=== PATIENT | female | born 1930 | race Caucasian/White ===

== ENCOUNTER → 2017-01-01 | Outpatient (CLI) | payer OTHER ==
[~2017-01-01] MED LIST: ADOXA100 MG PO; AUGMENTIN 875 M1 TAB PO; BACTRIM 400 MG-1 TAB PO; BACTRIM DS 8001 TA1 PO; CIPRO250 MG PO; CIPRO500 MG PO; CLARITIN10 MG PO; FLONASE 0.05% 121 EA NAS; HYDROCODONE BIT1 T11 PO; K-LOR20 MEQ; KCL; LASIX; LASIX40 MG; MOTRIN800 MG PO; MUCINEX600 MG PO; PRILOSEC20 MG PO; PRILOSEC40 MG PO; PROMETHAZINE12.5 M1 PO; SINEMET 25-1001 TA1 PO; SMZ-TMP 400 MG-1 TAB PO; SYNTHROID; SYNTHROID,LEVO25 MCG PO; SYNTHROID0.025 MG; TYLENOL500 MG PO; TYLENOL650 M1 PO; ZANTAC150 MG PO
[2017-01-01 17:04] LABS: ALBUMIN 3.6 gm/dl (3.1-4.5); CREATININE 1.36 mg/dL (0.55-1.02); POTASSIUM 4.2 mmol/L (3.5-5.1); TOTAL PROTEIN 7.7 gm/dL (6.4-8.2)
[2017-01-01 17:22] LABS: BASO % 0.5 % (0.0-1.0); EOS # 0.1 10*3/uL (0.0-0.4); EOS % 1.2 % (1.0-4.0); HEMATOCRIT 34.4 % (37.0-47.0); HEMOGLOBIN 10.8 g/dl (12.0-16.0); LYMPH # 1.3 10*3/uL (1.3-4.4); LYMPH % 20.9 % (27.0-41.0); MEAN CELL VOLUME 99.7 fl (81.0-99.0); MEAN CORPUSCULAR HGB 31.3 pg (27.0-31.0); MEAN CORPUSCULAR HGB CONC 31.4 g/dl (33.0-37.0); MEAN PLATELET VOLUME 10.8 fl (9.6-12.3); MONO # 0.5 10*3/uL (0.1-1.0); MONO % 8.1 % (3.0-9.0); NEUT # 4.2 10*3/uL (2.3-7.9); NEUT % 68.8 % (47.0-73.0); PLATELET COUNT AUTOMATED 196 10*3/uL (130-400); RED BLOOD COUNT 3.45 10*6/uL (4.10-5.10); RED CELL DISTRI WIDTH 13.3 % (0-14.5)
== END | disposition home or self-care (01) ==
LOC: LAB 16:08
PROVIDERS: Internal Medicine
DX: E03.9 Hypothyroidism, unspecified (principal); E55.9 Vitamin D deficiency, unspecified; N18.3 Chronic kidney disease, stage 3 (moderate)

== ENCOUNTER 2017-05-24 10:18 | Inpatient (IN) | payer OTHER ==
[~2017-05-24] VITALS: Ht 165.1 cm; Wt 47.2 kg
--- NOTE | ~2017-05-24 | PROC NOTE ---
[place], [place] PROCEDURE NOTE NAME: CLARITZA PATHAK UNIT #: [id number] ROOM: [facility] DOCTOR: SELAM STEVENS MD,VEENA BIRTHDATE: [birth year] DOS: 05/27/2017 PREOPERATIVE DIAGNOSIS: Bilateral diffuse interstitial pulmonary infiltration. POSTOPERATIVE DIAGNOSES: Evidence of suspected acute bacterial pneumonia and also interstitial lung disease. COMPLICATIONS: None. BLOOD LOSS: None. PROCEDURE DESCRIPTION: Informed consent obtained from the patient's family members. The patient is currently sedated on the intravenous Diprivan. The mechanical ventilation continued with 100% oxygen supplementation during the procedure. The bronchoscopy done in the negative pressure suite for this patient in the ICU. The video fiberoptic bronchoscope advanced through the endotracheal tube. Lower part of trachea noted a moderate amount of bilious secretion present in endobronchial tree bilaterally suctioned out with normal saline wash. Intake and output and sent for cultures. BAL specimen was obtained in the right middle lobe as well as right lower lobe for this patient and sent for cell differential including the routine culture for this patient as well as for the pneumocystis stain. Procedure well tolerated by the patient without any complications. Post-findings will be discussed with the patient's family members and patient later on. No major change in treatment at this time will be needed. VEENA DOSS MD CM:PROCNOTE:PROCEDURE NOTE [id number] VEENA STEVENS MD
--- NOTE | ~2017-05-24 | PR ---
[place], [place] PROGRESS NOTE NAME: CLARITZA PATHAK UNIT #: [id number] ROOM: [facility] DOCTOR: BANDAR KENNEDY DO BIRTHDATE: [birth year] DOS: I was called to the ICU for respiratory distress. The patient has bilateral pneumonia. She was on a BiPAP and was satting in the mid 60s her for oxygen status. ____ Dr. Carreno ____ cleared with the patient's family. They did want the patient intubated. The patient was sedated with 20 of etomidate. She was manually bag masked to bring her sats below 90s, 100 mg of succinylcholine was used. A 7.5 ET tube was advanced through her cords with good visualizations. Good breath sounds bilaterally. No breath sounds in the epigastrium. Good tube fogging. Good color change on the CO2 detector. Chest x-ray is pending. BANDAR KENNEDY DO CM:PNTRANS [id number] BANDAR KENNEDY DO 05/25/172058 interface
--- NOTE | ~2017-05-24 | CON ---
[place], [place] REPORT OF CONSULTATION NAME: CLARITZA PATHAK UNIT #: [id number] ROOM: [facility] DOCTOR: SELAM STEVENS MD,VEENA BIRTHDATE: [birth year] DOS: 05/26/2017 PULMONARY CRITICAL CARE CONSULTATION CONSULTATION REQUESTED BY: Kaiden Angel DO REASON FOR CONSULTATION: To assess the patient's current acute respiratory failure. HISTORY OF PRESENT ILLNESS: This is an 86-year-old white female, unable to give me any history as the patient is intubated, noted on mechanical ventilation in the hospital since 05/24/2017 under the hospitalist care. The history contained document is ____ review of the medical record for current hospitalization by the other physician note as well. HISTORY OF PRESENT ILLNESS: The patient is an 86-year-old female who was brought to the Emergency Room because the patient was noted with progressive general weakness and fatigue. The patient was also reported symptoms of urinary tract infection, which has been treated since 05/19/2017 with ciprofloxacin. The patient was noted with symptoms of cough with yellow sputum expectoration. The daughter stated the patient was also noted symptoms, sinus congestion as well and ____ was given for that. The patient admitted to the hospital noted progressive deterioration of the oxygenation during the hospitalization. She requires progressive increase in oxygen requirement. The initial code status was noted with possibility of comfort care for this patient, but later on as Dr. Lian Angel discussed with the patient's family member, she was intubated and started on mechanical ventilation. The patient's code status was described to be full code. The patient was also noted this finding of mild hypertension with fever as well. The patient is currently intubated and started on mechanical ventilation last evening. He remains on mechanical ventilation, initially 100% oxygen supplementation. Gradual reduction of the oxygen was noted up to 50% this morning. The patient also sedated with the use of the combination to prevent intravenous Versed. She also received some fluid resuscitation for the patient post-intubation as well for the medical management of hypotension. She has not been reported any findings of hemoptysis. Some worsening of the kidney function was also reported. REVIEW OF SYSTEMS: Could not be completed since the patient is intubated, noted on the mechanical ventilation. PAST MEDICAL HISTORY: Reported in the medical records is a history of parkinsonism and gastric outlet obstruction. The patient also had a history of hypothyroidism. PAST SURGICAL HISTORY: Documented for hysterectomy. SOCIAL HISTORY: The patient was documented as no tobacco use, alcohol use or any illicit drugs. 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 History about the mom was unknown for this patient. One of the brother with history of stroke. Two other brothers were noted to have history of stroke. HOME MEDICATIONS: Noted. 1. Sinemet 25/100 one q.i.d. 2. Ciprofloxacin 500 mg b.i.d. 3. Colace 100 mg p.o. daily p.r.n. constipation. 4. Ibuprofen 800 mg p.o. t.i.d. 5. Synthroid 50 mcg p.o. daily. DRUG ALLERGIES: Reported as allergy to Macrobid. PHYSICAL EXAMINATION: GENERAL: This is an 86-year-old female who has been currently noted intubated on mechanical ventilation at this time. Height of the patient recorded 5 feet 5 inches, weight of 104. The BMI 17.3. VITAL SIGNS: For the patient, which has been recorded patient showed the temperature noted as normal, respiratory rate range between 35-28, heart rate 84-100, blood pressure 117/51 to 105/45. The intake for the patient was noted as 2157 and output 575 mL. Pulse oxygen saturation of the patient 50% with 97% saturation. The patient's oxygen on room air on admission noted at 93%. HEENT: Examination shows head was atraumatic. Eyes were nonicterus. NECK: Supple. The patient is currently intubated. CARDIOVASCULAR SYSTEM: S1, S2 audible. LUNGS: The patient noted moderate reduction in breath sounds in the lungs bilaterally. There were no crackles heard. ABDOMEN: Soft, nontender. EXTREMITIES: The patient was noted without any visible edema, clubbing, or cyanosis. MUSCULOSKELETAL: There were no obvious deformities were noted. GENITOURINARY: Cannot be assessed. The patient is currently intubated. History of past parkinsonism reported. LABORATORY DATA: Reviewed. Urine culture on the was noted as heavy growth of E. coli. The patient noted ____ multiple antibiotics with resistant to the fluoroquinolones. The lactic acid was 2.8 noted on admission and later 1.2 on the same day on . PT/PTT on 05/24/2017 was normal. The CBC of the patient of 05/24/2017 on admission, WBC count 11.1, hemoglobin 10.2, hematocrit 29.8, and platelet count 189,000. CMP of the patient of , BUN 38, creatinine 2.14, and glucose 133. The albumin of 3.0, AST 48, minimally elevated. Influenza A and B, nasal washing antigens were negative. CT scan of the head for this patient that was done on 05/24/2017 was noted to have no acute intracranial abnormalities reported. CMP of the patient that was done yesterday, BUN of 39, creatinine 2.02, glucose 117, carbon dioxide of 20. PT/PTT repeated yesterday still noted normal. The CBC of the patient of 05/25/2017, WBC count 14.5, hemoglobin 9.9, hematocrit 30.9, and platelet count 213,000. The blood culture for patient on of this month so far reported no bacterial growth. Final results were pending. CMP this morning, BUN 42, [place], [place] REPORT OF CONSULTATION NAME: CLARITZA PATHAK UNIT #: [id number] ROOM: [facility] DOCTOR: SELAM STEVENS MD,[facility] BIRTHDATE: [birth year] creatinine 1.95, glucose 130, CO2 of 19. Albumin 2.4. CBC of the patient on 05/26/2017, WBC count 14.7, hemoglobin 8.8, hematocrit 26.0, and platelet count was normal. The chest x-ray of the patient that was done on 05/24/2017 noted with patchy infiltration in the lungs. The patient's pulmonary venous congestion marking without any pleural fluid. The chest x-ray which was done for the patient at 5:56 a.m. on 05/25/2017 noted progressive increased infiltration noted diffusely in the lungs bilaterally with finding of a diffuse pulmonary infiltration, possibility of pulmonary edema will be considered or worsening of the pneumonia. The chest x-ray post-intubation endotracheal tube noted about 3.5 cm above the kinza level diffuse pulmonary infiltration. A chest x-ray that I ordered for the patient this morning shows partial reduction of previous pulmonary infiltration. The arterial blood gas this morning 70% oxygen, pH of 7.37, pCO2 of 27, pO2 of 172 on assist control, volume control mechanical ventilation. Arterial blood gas yesterday prior to intubation, pH of 7.16, pCO2 of 42, pO2 of 100 and 400% nonrebreather mask. Arterial blood gas prior to that was noted, pH of 7.29, pCO2 of 33.8, pO2 49.9, 100% nonrebreather mask as well. IMPRESSION: 1. The patient who has been currently admitted to the hospital noted with finding of acute respiratory distress syndrome with the patient current bilateral pulmonary infiltration with possible suggestion of pulmonary edema, noncardiogenic causes as well as other interstitial disorders. The patient would be considered including for acute eosinophilic pneumonia or,, hypersensitivity, pneumonitis or allergic drug reaction. 2. The patient with acute kidney injury was also noted with possibility to underlying superimposed chronic kidney disease can be completely excluded. 3. The patient with current over debility status. The patient with suspicion of moderate protein calorie malnutrition as well with her elderly age. 4. The patient with ruling out the congestive heart failure as well with further assessment. 5. Hyperglycemia, which was noted with current use of corticosteroid, which has been given 60 mg daily. There was no further evidence of urinary tract infection. The repeat culture of the urine were noted to be negative. RECOMMENDATION AND MANAGEMENT: The patient has been already initiated ventilator bundle management. DVT prophylaxis will be continued. The patient has been getting intravenous antibiotic cefepime, vancomycin, and Levaquin, which get a coverage for gram-positive and gram-negative organism. Monitor culture results. Complete the doses for this patient of the influenza pneumonia for the patient or infection empirical treatment. Bronchodilators will be administered. Nutrition support has been ordered. The patient with the use of Pulmocare for this patient at this time as well continue sedation. Fibronchoscopy ____ planned to be done in the morning as well. Other additional treatment changes to be done based on further progression of the illness. Monitor and manage the patient with the Nephrology services as well. Cardiology consultation will be strongly recommended for the patient if not done. Assess for possible consideration of left ventricular heart failure as well. Other additional treatment changes to be made for this patient based on progression of the illness and usual care. Also, obtain the endotracheal aspirate for Gram [place], [place] REPORT OF CONSULTATION NAME: CLARITZA PATHAK UNIT #: [id number] ROOM: [facility] DOCTOR: SELAM STEVENS MD,VEENA BIRTHDATE: [birth year] stain and culture as well if it is not done so previously. The total time for pulmonary critical care evaluation and management consultation for this patient is 40 minutes. Thank you for allowing me to participate in the care of this patient. VEENA DOSS MD CM:CONSTR:REPORT OF CONSULTATION 1244 05/26/172031 interface
--- NOTE | ~2017-05-24 | PR ---
[place], [place] PROGRESS NOTE [id number] UNIT #: [id number] ROOM: [facility] DOCTOR: SELAM STEVENS MD,VEENA BIRTHDATE: [birth year] DOS: 05/28/2017 SUBJECTIVE: The patient remains on mechanical ventilator with pressure-control mechanical ventilation. She has a bronchoscopy done as well with BAL specimens obtained. The patient was noted with subcutaneous emphysema this morning initially in the neck and later on the right side of the chest. The patient's oxygen was also noted somewhat decreased. The oxygen saturation was noted about 89-90%. The arterial blood gas was done, which correlates with the current oxygen desaturation. The oxygen supplementation was increased to 50% with oxygen saturation noted as 97% afterwards. She has not been noted with any other changes. She was getting minimal sedation, does partially open her eyes with vocal commands. The feeding was continued, which has been well tolerated. OBJECTIVE: VITAL SIGNS: For the patient, which has been recorded showed the temperature noted as 99.2 degree Fahrenheit rectal temperature, otherwise normal, respiratory rate 23-30, heart rate of 106-69, blood pressure 110/62-117/39. Pulse oxygen saturation noted 97% on 50% oxygen this morning. The patient was noted as 95% saturation on 40% of oxygen. HEENT: The patient remained orally intubated, orogastric tube is in place. NECK: Supple with subcutaneous emphysema palpable mostly in the right side of the neck. CARDIOVASCULAR: S1, S2 audible. LUNGS: Noted bilaterally equal breath sounds without any wheezing or crackles. ABDOMEN: Soft, nontender. EXTREMITIES: Without any acute edema. VISIBLE SKIN: No lesions or rashes. MUSCULOSKELETAL SYMPTOMS: Without any acute deformities. LABORATORY DATA: The culture of the bronchial washing noted moderate growth of yeast. Urine for legionella antigen and strep antigen report noted as negative. Previous culture endotracheal aspirate noted heavy growth of yeast. Cell differential that was done of right middle and right lower lobe was noted with right lower lobe 70% neutrophils, 17% lymphocytes, 12% macrophages and 1% basophils. The second specimen was noted with 82% neutrophils, the right middle lobe 8% lymphocytes, 1%, eosinophils 7% macrophages. The BAL specimen was highly suggestive of acute infection where the bacterial, viral or other etiologies remains strongly considered. The chest x-ray that was done this morning shows evidence of subcutaneous emphysema, endotracheal tube noted in the above position. Bilateral diffuse infiltration noted in the lungs. The CT scan of the chest that I did order for this patient was reviewed that was completed without contrast has excluded any pneumothorax. Pneumomediastinum was noted as well as subcutaneous emphysema. The patient with bilateral ARDS pattern noted in the lungs. WBC count of 15.6, hemoglobin 9.3, hematocrit 26.6, platelet count 272,000, 94% segmented neutrophils. CMP: BUN 72, creatinine 2.20, glucose 110. Carbon dioxide of 17. Urine culture, no bacterial growth as final results. First arterial blood gas - pH of 7.39, pCO2 of 25, pO2 of 66. Second arterial blood - gas pH of 7.38, pCO2 of 27, pO2 of 85 on 50% oxygen. [place], [place] PROGRESS NOTE NAME: CLARITZA PATHAK UNIT #: [id number] ROOM: [facility] DOCTOR: TRUMAN MCCRAY MDM BIRTHDATE: [birth year] IMPRESSION: 1. The patient has been noted with acute respiratory distress syndrome at the present time, remains persistent secondary to acute infection with viral or bacterial. 2. Subcutaneous emphysema and pneumomediastinum with current mechanical ventilation. The plateau pressure has been already noted less than 30 since the patient is getting mechanical ventilation. The PEEP was kept at the same as 8 cm of water. The arterial blood gas noted with adequate ventilation. The first arterial blood gas that was done shows pO2 of 66 and second arterial blood gases on 50% oxygen noted increased pO2 of 85. 3. Persistent acute kidney injury was noted at the present time without any major worsening. 4. Change in mental status secondary to the metabolic encephalopathy and current acute infection. PLAN OF MANAGEMENT: Continue with current mechanical ventilatory support. The patient would be considered transfer to another facility with Cardiothoracic Surgery back for the management of subcutaneous emphysema. No other intervention otherwise will be needed by the observation. Continue steroids, bronchodilators, and the antibiotics. The reduction of antibiotic spectrum in the next 24 hours based on the final culture results. The pneumocystis stain was also sent on the BAL, which was pending at this time from the lab. Continue nutritional support as tolerated and ventilator bundle management and care plan. Other supportive therapy, plan of management in progress would be continued. Total time in pulmonary critical care, evaluation and management of the patient today was noted 45 minutes. VEENA DOSS MD CM:PNTRANS [id number] VEENA STEVENS MD 05/29/17 0030 interface
--- NOTE | ~2017-05-24 | PR ---
[place], [place] PROGRESS NOTE NAME: CLARITZA PATHAK [facility] #: [id number] UNIT #: [id number] ROOM: [facility] DOCTOR: SELAM STEVENS MD,VEENA BIRTHDATE: [birth year] DOS: 05/27/2017 PULMONARY CRITICAL CARE, EVALUATION AND MANAGEMENT SUBJECTIVE: The patient remains on the mechanical ventilator at the present time. Continued intravenous antibiotics. Also, continued other treatment of the patient, the nutrition support was started. She was also getting Solu-Medrol at 60 mg IV daily. She has not been reported any hemodynamic instability at the present time. She was planned for bronchoscopy done today for the patient, bilateral diffuse pulmonary infiltration. There was no problem with difficulty noted with the feeding, which was started for the patient with gradual increase in the feeding for the patient was continued for the medical management of protein-calorie malnutrition. All the ventilator bundle management remains in progress. OBJECTIVE: VITAL SIGNS: For the patient, which has been recorded showed the temperature noted as normal, respiratory rate 25-27, heart rate 87-83, blood pressure 117/44-109/45. HEENT: The patient remained orally intubated, orogastric tube is in place. NECK: Supple. Head was atraumatic. CARDIOVASCULAR: S1, S2 is audible. LUNGS: The patient was noted without any wheezing or crackles at the present time. Breaths are noted generalized diminished bilaterally. ABDOMEN: Soft, nontender. EXTREMITIES: The patient was noted without any edema. CENTRAL NERVOUS SYSTEM: Currently, the patient is sedated with intravenous Diprivan. SKIN: Visible skin. No lesions or rashes. MUSCULOSKELETAL: Without any acute deformities. LABORATORY DATA: Arterial blood gas this morning, the patient on pressure control mechanical ventilation, pH of 7.34, pCO2 of 23, pO2 161, 40% oxygen. CBC of the patient on 05/27/2017, WBC count 15.1, hemoglobin 8.3, hematocrit 24.4, platelet count 231,000 with 96% segmented neutrophils. Urine culture preliminary showed no bacterial growth. CMP of the patient this morning, BUN 66, creatinine 2.61, glucose 132, sodium 133. Prealbumin only 6. AST 41, ALT less than 6. Albumin 2.1, total protein of 5.8. Sed rate was noted as 80. C-reactive protein was also noted significantly elevated at 16.20. Blood culture from the 05/24/2017 preliminary showed no bacterial growth, final culture results were pending. The culture of endotracheal aspirate for the patient shows heavy growth of yeast. The LDH, which was obtained for the patient today was noted as 604. Chest x-ray of the patient that was done this morning shows stable bilateral pulmonary infiltration with interstitial infiltration. Endotracheal tube was noted for this patient about 4.5 cm above the kinza level. IMPRESSION: 1. The patient has been noted bilateral pulmonary infiltration. Differential diagnosis of acute pneumonia with possibility of noncardiogenic pulmonary edema [place], [place] PROGRESS NOTE NAME: CLARITZA PATHAK UNIT #: [id number] ROOM: [facility] DOCTOR: SELAM STEVENS MD,VEENA BIRTHDATE: [birth year] for this patient or pulmonary edema as well as other interstitial lung disease of the patient remains in progress. 2. Acute influenza infection of the patient was also suspected, treated. 3. Very severe protein-calorie malnutrition. 4. Acute kidney injury for the patient superimposed with possibly chronic kidney disease as well. 5. Change in mental status secondary to the above. PLAN OF MANAGEMENT: The patient will be continued on the bronchodilators, oxygen supplementation and corticosteroids. Titrate the oxygen to maintain a saturation of 92% greater with pressure control mechanical ventilation for the lung volume protective strategy. ____ to be done for the patient carefully because of the elevation of BUN and creatinine. Continue current antibiotic, adjusted the kidney functions. De-escalation of antibiotic after final culture results known. Proceed with the fiberoptic bronchoscopy planned for today including obtaining a BAL specimen of the subsegments. Total time in pulmonary critical care, evaluation and management of the patient was 45 minutes. VEENA DOSS MD CM:PNTRANS [id number] VEENA STEVENS MD 05/28/17 0252 interface
[2017-05-24 10:23] VITALS: BP 136/52
[2017-05-24 11:01] LABS: HEMATOCRIT 29.8 % (37.0-47.0); HEMOGLOBIN 10.2 g/dl (12.0-16.0); MEAN CELL VOLUME 91.4 fl (81.0-99.0); MEAN CORPUSCULAR HGB 31.3 pg (27.0-31.0); MEAN CORPUSCULAR HGB CONC 34.2 g/dl (33.0-37.0); MEAN PLATELET VOLUME 10.4 fl (9.6-12.3); PLATELET COUNT AUTOMATED 189 10*3/uL (130-400); RED BLOOD COUNT 3.26 10*6/uL (4.10-5.10); RED CELL DISTRI WIDTH 12.5 % (0-14.5); WHITE BLOOD COUNT 11.1 10*3/uL (4.8-10.8)
[2017-05-24 11:18] LABS: ACT PARTIAL THROMBO TIME 30.4 SECONDS (20.8-31.5); INTERNATIONAL NORM RATIO 1.1 (2.0-3.5)
[2017-05-24 11:21] LABS: PLATELET SUFFICIENCY NORMAL (NORMAL); TOTAL CELLS COUNTED 100 #CELLS
[2017-05-24 11:24] LABS: CREATININE 2.14 mg/dL (0.55-1.02); POTASSIUM 4.2 mmol/L (3.5-5.1); TOTAL PROTEIN 7.2 gm/dL (6.4-8.2); TROPONIN I 0.021 ng/ml (<0.045)
[2017-05-24 12:17] VITALS: BP 92/30
[2017-05-24 12:40] VITALS: BP 115/76
[2017-05-24] MEDS ORDERED: LEVO-T50 MCG PO (13:09)
[2017-05-24] MEDS ORDERED: CARBIDOPA-LEVO1 EAC6 PO (13:11)
[2017-05-24] MEDS ORDERED: COLACE100 MG PO (13:11)
[2017-05-24 16:00] VITALS: BP 96/66
[2017-05-24 17:35] LABS: BILIRUBIN NEGATIVE (NEGATIVE); BLOOD 1+ (NEGATIVE); CLARITY SL CLOUDY (CLEAR); COLOR YELLOW (YELLOW); GLUCOSE NEGATIVE (NEGATIVE); KETONE NEGATIVE (NEGATIVE); LEUKO ESTERASE TRACE (NEGATIVE); NITRITE POSITIVE (NEGATIVE); PH 5.5 (5.0-9.0); UROBILINOGEN 0.2 E.U./dl (0.2-1.0)
[2017-05-24 17:42] LABS: BACTERIA 2+; EPITHELIAL CELLS TNTC; WBC 16-20 wbc/hpf (0-5)
[2017-05-24 20:00] VITALS: BP 100/48
[2017-05-25] VITALS (8 sets, daily range): BP systolic 80–156; BP diastolic 37–74
[2017-05-25 06:57] LABS: ALBUMIN 2.6 gm/dl (3.1-4.5); CREATININE 2.02 mg/dL (0.55-1.02); PHOSPHOROUS 3.4 mg/dL (2.5-4.9)
[2017-05-25 07:04] LABS: FREE T4 1.33 ng/dl (0.76-1.46); THYROID STIM HORMONE (HS) 1.59 uIU/ml (0.358-4.75); TOTAL PROTEIN 6.7 gm/dL (6.4-8.2)
[2017-05-25 07:16] LABS: ACT PARTIAL THROMBO TIME 34.6 SECONDS (20.8-31.5); INTERNATIONAL NORM RATIO 1.2 (2.0-3.5)
[2017-05-25 07:19] LABS: HEMATOCRIT 30.3 % (37.0-47.0); HEMOGLOBIN 9.9 g/dl (12.0-16.0); MEAN CELL VOLUME 94.4 fl (81.0-99.0); MEAN CORPUSCULAR HGB 30.8 pg (27.0-31.0); MEAN CORPUSCULAR HGB CONC 32.7 g/dl (33.0-37.0); PLATELET COUNT AUTOMATED 213 10*3/uL (130-400); RED BLOOD COUNT 3.21 10*6/uL (4.10-5.10); RED CELL DISTRI WIDTH 12.7 % (0-14.5); WHITE BLOOD COUNT 14.5 10*3/uL (4.8-10.8)
[2017-05-25 07:42] LABS: BASOPHILS 1 % (0-1); TOTAL CELLS COUNTED 100 #CELLS
[2017-05-25 07:43] LABS: BURR CELLS FEW; PLATELET SUFFICIENCY NORMAL (NORMAL)
[2017-05-25 09:40] LABS: VITAMIN D, 25-HYDROXY 13.6 ng/mL (30-100)
[2017-05-25 17:24] LABS: ABG O2 SATURATION 83.9 % (95-97); ARTERIAL BLOOD GAS PCO2 33.8 mmHg (35-45); ARTERIAL BLOOD GAS PH 7.297 (7.35-7.45); ARTERIAL BLOOD GAS PO2 49.9 mmHg (80-90)
[2017-05-25 17:25] LABS: ABG BASE EXCESS -9.2 mmol/L (-2.0-2.0)
[2017-05-25 18:29] LABS: BILIRUBIN NEGATIVE (NEGATIVE); BLOOD 1+ (NEGATIVE); CLARITY SL CLOUDY (CLEAR); COLOR YELLOW (YELLOW); GLUCOSE NEGATIVE (NEGATIVE); KETONE NEGATIVE (NEGATIVE); LEUKO ESTERASE 1+ (NEGATIVE); NITRITE NEGATIVE (NEGATIVE); SPECIFIC GRAVITY 1.015 (1.005-1.030); UROBILINOGEN 0.2 E.U./dl (0.2-1.0)
[2017-05-25 18:44] LABS: BACTERIA 1+
[2017-05-25 20:38] LABS: ARTERIAL BLOOD GAS PCO2 42.7 mmHg (35-45)
[2017-05-25 20:39] LABS: ABG BASE EXCESS -12.6 mmol/L (-2.0-2.0); ARTERIAL BLOOD GAS PH 7.168 (7.35-7.45)
[2017-05-26] VITALS (12 sets, daily range): BP systolic 85–122; BP diastolic 36–56
[2017-05-26 04:45] LABS: HEMOGLOBIN 8.8 g/dl (12.0-16.0); MEAN CORPUSCULAR HGB 30.9 pg (27.0-31.0); MEAN CORPUSCULAR HGB CONC 33.8 g/dl (33.0-37.0); MEAN PLATELET VOLUME 10.3 fl (9.6-12.3); PLATELET COUNT AUTOMATED 201 10*3/uL (130-400); RED BLOOD COUNT 2.85 10*6/uL (4.10-5.10); RED CELL DISTRI WIDTH 12.9 % (0-14.5); WHITE BLOOD COUNT 14.7 10*3/uL (4.8-10.8)
[2017-05-26 04:52] LABS: MEAN CELL VOLUME 91.2 fl (81.0-99.0)
[2017-05-26 05:13] LABS: ALBUMIN 2.4 gm/dl (3.1-4.5); CREATININE 1.95 mg/dL (0.55-1.02); POTASSIUM 4.1 mmol/L (3.5-5.1); TOTAL PROTEIN 6.2 gm/dL (6.4-8.2)
[2017-05-26 05:15] LABS: BURR CELLS FEW; PLATELET SUFFICIENCY NORMAL (NORMAL); TOTAL CELLS COUNTED 100 #CELLS
[2017-05-26 07:20] LABS: ABG HCO3 15.7 mmol/l (22-26); ABG O2 SATURATION 99.1 % (95-97); ARTERIAL BLOOD GAS PCO2 27.2 mmHg (35-45); ARTERIAL BLOOD GAS PH 7.378 (7.35-7.45)
[2017-05-26 07:21] LABS: ABG BASE EXCESS -8.3 mmol/L (-2.0-2.0)
[2017-05-27] VITALS (12 sets, daily range): BP systolic 96–146; BP diastolic 36–69
[2017-05-27 04:38] LABS: HEMATOCRIT 24.4 % (37.0-47.0); HEMOGLOBIN 8.3 g/dl (12.0-16.0); MEAN CELL VOLUME 89.4 fl (81.0-99.0); MEAN CORPUSCULAR HGB 30.4 pg (27.0-31.0); MEAN PLATELET VOLUME 10.5 fl (9.6-12.3); PLATELET COUNT AUTOMATED 231 10*3/uL (130-400); RED BLOOD COUNT 2.73 10*6/uL (4.10-5.10); RED CELL DISTRI WIDTH 12.8 % (0-14.5); WHITE BLOOD COUNT 15.1 10*3/uL (4.8-10.8)
[2017-05-27 04:55] LABS: ALBUMIN 2.1 gm/dl (3.1-4.5); ALKALINE PHOSPHATASE 82 U/L (45-117); BUN 63 mg/dl (7-24); CHLORIDE 104 mmol/L (98-107); CREATININE 2.61 mg/dL (0.55-1.02); PHOSPHOROUS 4.2 mg/dL (2.5-4.9); POTASSIUM 4.3 mmol/L (3.5-5.1); SGOT/AST 41 IU/L (3-35); SGPT/ALT < 6 U/L (12-78); SODIUM 133 mmol/L (136-145); TOTAL PROTEIN 5.8 gm/dL (6.4-8.2)
[2017-05-27 04:56] LABS: PREALBUMIN 6 mg/dl (20-40)
[2017-05-27 04:59] LABS: BURR CELLS FEW; PLATELET SUFFICIENCY NORMAL (NORMAL); TOTAL CELLS COUNTED 100 #CELLS
[2017-05-27 05:51] LABS: ABG HCO3 12.6 mmol/l (22-26); ABG O2 SATURATION 99.5 % (95-97); ARTERIAL BLOOD GAS PCO2 23.5 mmHg (35-45); ARTERIAL BLOOD GAS PH 7.347 (7.35-7.45)
[2017-05-27 05:52] LABS: ABG BASE EXCESS -11.6 mmol/L (-2.0-2.0)
[2017-05-27 07:05] LABS: IMMUNOGLOBULIN M, QNT 58 mg/dL (26-217); RHEUMATOID ARTHRITIS FACTOR 17.3 IU/mL (0.0-13.9)
[2017-05-27 09:19] LABS: URINE CREATININE RANDOM 13.4 mg/dL; URINE CREATININE RANDOM 13.9 mg/dL
[2017-05-27 11:46] LABS: BF LYMPHOCYTES 17 %; BF MACROPHAGES 12 %; BF NEUTROPHILS 70 %
[2017-05-27 11:49] LABS: BF LYMPHOCYTES 8 %; BF MACROPHAGES 7 %; BF NEUTROPHILS 82 %
[2017-05-27 12:05] LABS: ALDOLASE 002030 18.6 U/L (3.3-10.3); ANGIOTENSIN-CONVERTING ENZYME 37 U/L (14-82)
[2017-05-27 14:09] LABS: ATYPICAL PANCA <1:20 titer (Neg:<1:20); CYTOPLASMIC (C-ANCA) <1:20 titer (Neg:<1:20)
[2017-05-28] VITALS (11 sets, daily range): BP systolic 98–123; BP diastolic 28–60
[2017-05-28 01:05] LABS: IGG SUBCLASS 1 514 mg/dL (248-810); IGG SUBCLASS 2 29 mg/dL (130-555); IGG SUBCLASS 3 59 mg/dL (15-102); IGG SUBCLASS 4 18 mg/dL (2-96); IMMUNOGLOBULIN G, QNT 693 mg/dL (700-1600)
[2017-05-28 04:20] LABS: HEMATOCRIT 26.6 % (37.0-47.0); HEMOGLOBIN 9.3 g/dl (12.0-16.0); MEAN CELL VOLUME 88.4 fl (81.0-99.0); MEAN CORPUSCULAR HGB 30.9 pg (27.0-31.0); MEAN PLATELET VOLUME 10.1 fl (9.6-12.3); PLATELET COUNT AUTOMATED 272 10*3/uL (130-400); RED BLOOD COUNT 3.01 10*6/uL (4.10-5.10); RED CELL DISTRI WIDTH 12.9 % (0-14.5); WHITE BLOOD COUNT 15.6 10*3/uL (4.8-10.8)
[2017-05-28 04:49] LABS: ALBUMIN 2.1 gm/dl (3.1-4.5); ALKALINE PHOSPHATASE 81 U/L (45-117); BUN 72 mg/dl (7-24); CHLORIDE 111 mmol/L (98-107); PHOSPHOROUS 4.2 mg/dL (2.5-4.9); POTASSIUM 4.6 mmol/L (3.5-5.1); SGOT/AST 28 IU/L (3-35); SODIUM 139 mmol/L (136-145)
[2017-05-28 04:51] LABS: SGPT/ALT < 6 U/L (12-78)
[2017-05-28 05:44] LABS: BURR CELLS MODERATE; PLATELET SUFFICIENCY NORMAL (NORMAL); TOTAL CELLS COUNTED 100 #CELLS
[2017-05-28 07:16] LABS: ABG HCO3 15.3 mmol/l (22-26); ABG O2 SATURATION 94.6 % (95-97); ARTERIAL BLOOD GAS PCO2 25.6 mmHg (35-45); ARTERIAL BLOOD GAS PH 7.395 (7.35-7.45); ARTERIAL BLOOD GAS PO2 66.6 mmHg (80-90)
[2017-05-28 07:18] LABS: ABG BASE EXCESS -8.1 mmol/L (-2.0-2.0)
[2017-05-28 09:37] LABS: ABG HCO3 16.1 mmol/l (22-26); ABG O2 SATURATION 96.6 % (95-97); ARTERIAL BLOOD GAS PCO2 27.6 mmHg (35-45); ARTERIAL BLOOD GAS PH 7.386 (7.35-7.45); ARTERIAL BLOOD GAS PO2 85.5 mmHg (80-90)
[2017-05-28 09:38] LABS: ABG BASE EXCESS -7.4 mmol/L (-2.0-2.0)
[2017-05-28 16:07] LABS: ACID FAST SMEAR Negative (.); ACID FAST SPEC PROCESSING Concentration (.)
[2017-05-30 00:03] LABS: IMMUNOGLOBULIN IgE 002170 11 IU/mL (0-100)
== END 2017-05-28 20:51 | disposition short-term general hospital (02) | DRG 853 ==
LOC: ED 10:18 → ICCU 11:37 → 5E 11:37 → EDHOLD 11:37 → 5E 11:45 → ICCU 05-25 17:24
PROVIDERS: Emergency Medicine; Family Medicine; Internal Medicine; Internal Medicine Critical Care Medicine; Internal Medicine Nephrology; Student in an Organized Health Care Education/Training Program
DX: A41.9 Sepsis, unspecified organism (principal); J18.9 Pneumonia, unspecified organism; J96.01 Acute respiratory failure with hypoxia; N17.0 Acute kidney failure with tubular necrosis; E43 Unspecified severe protein-calorie malnutrition; G93.41 Metabolic encephalopathy; E87.2 Acidosis; G20 Parkinson's disease; T79.7XXA Traumatic subcutaneous emphysema, initial encounter; N39.0 Urinary tract infection, site not specified; Z68.1 Body mass index [BMI] 19.9 or less, adult; G89.29 Other chronic pain; M54.9 Dorsalgia, unspecified; D64.9 Anemia, unspecified; Z66 Do not resuscitate; N18.3 Chronic kidney disease, stage 3 (moderate); R73.9 Hyperglycemia, unspecified; R74.0 Nonspecific elevation of levels of transaminase and lactic acid dehydrogenase [LDH]; E03.8 Other specified hypothyroidism; R31.9 Hematuria, unspecified; R65.20 Severe sepsis without septic shock; W18.39XA Other fall on same level, initial encounter; Z51.5 Encounter for palliative care; Y93.89 Activity, other specified; Y92.098 Other place in other non-institutional residence as the place of occurrence of the external cause; Y99.8 Other external cause status; Z88.8 Allergy status to other drugs, medicaments and biological substances; Z79.2 Long term (current) use of antibiotics; Z79.899 Other long term (current) drug therapy; Z90.710 Acquired absence of both cervix and uterus; Z82.3 Family history of stroke; Z80.9 Family history of malignant neoplasm, unspecified